=== PATIENT | female | born 1990 | race Caucasian/White ===

== ENCOUNTER 2018-05-08 14:11 | Emergency (ER) | payer OTHER ==
[~2018-05-08] VITALS: Ht 152.4 cm; Wt 46.8 kg
[2018-05-08] MEDS ORDERED: AZEL0.1S NARES (15:46)
[2018-05-08 15:56] VITALS: BP 108/63
== END 2018-05-08 16:14 | disposition home or self-care (01) ==
LOC: M ED 14:11
DX: H92.01 Otalgia, right ear (principal); H93.13 Tinnitus, bilateral; R51 Headache; R47.89 Other speech disturbances; Z87.828 Personal history of other (healed) physical injury and trauma

== ENCOUNTER → 2018-06-24 | Outpatient (CLI) | payer OTHER ==
[~2018-06-24] MED LIST: AZEL0.1S NARES
--- NOTE | 2018-06-24 14:42 | REP ---
MR BRAIN WITHOUT CONTRAST: HISTORY: Traumatic brain injury. Several punctate areas of increased signal intensity on T2 weighted images are present in the subcortical white matter of the frontal lobes. There is no intraparenchymal hemorrhage, infarct, mass or midline shift. The ventricular system is normal in appearance. There is no extracerebral collection. The sinuses are clear. IMPRESSION:There are several punctate areas of increased signal intensity in the subcortical white matter of the frontal lobes. This is a nonspecific finding. Electronically Signed by Serafin Hernandez MD 06/24/2018 02:44 P
== END ==
LOC: M RAD 13:02
PROVIDERS: ATTEND Physician Assistant
DX: S06.9X0A Unspecified intracranial injury without loss of consciousness, initial encounter (principal); X58.XXXA Exposure to other specified factors, initial encounter; Y92.9 Unspecified place or not applicable; Y93.9 Activity, unspecified; Y99.9 Unspecified external cause status

== ENCOUNTER → 2018-10-15 | Outpatient (CLI) | payer OTHER ==
--- NOTE | 2018-10-15 19:25 | REP ---
Clinical: Lower back pain. Technique: AP, lateral, bilateral oblique and coned-down views of the lumbosacral spine. Findings: Alignment is maintained. Vertebral bodies are intact. Disc spaces are normal. Impression: Normal lumbosacral spine radiographs. The Electronically Signed by Tomas Mahoney MD 10/15/2018 07:17 P
== END ==
LOC: M WUC 18:03
PROVIDERS: ATTEND Physician Assistant
DX: M54.5 Low back pain (principal)

== ENCOUNTER 2019-04-14 19:36 | Emergency (ER) | payer OTHER ==
[~2019-04-14] VITALS: Ht 152.4 cm; Wt 44.5 kg
[2019-04-14] MEDS ORDERED: TIZA4TAB4 PO (19:54)
[2019-04-14] MEDS ORDERED: XULA1DIS TD (19:54)
[2019-04-14] MEDS ORDERED: NAPR-855 PO (19:54)
[2019-04-14] MEDS ORDERED: NORT10CA2 PO (19:54)
[2019-04-14] MEDS ORDERED: LIDO1CRE2 TOP (19:56)
[2019-04-14] MEDS ORDERED: CAPS0.022 TOP (19:56)
[2019-04-14] MEDS ORDERED: DICL1GEL3 TOP (20:00)
[2019-04-14 20:27] LABS: BASO # 0.1 10^3/uL (0.0-0.2); BASO % 0.6 % (0.0-1.0); EOS # 0.2 10^3/uL (0.0-0.5); EOS % 2.5 % (0.0-3.0); HEMATOCRIT 40.2 % (36.0-47.0); HEMOGLOBIN 13.6 g/dl (12.0-15.5); LYMPH # 2.3 10^3/uL (1.5-5.0); LYMPH % 26.2 % (24.0-44.0); MEAN CORPUSCULAR HEMOGLOBIN 29.7 pg (27.0-33.0); MEAN CORPUSCULAR HGB CONC 33.8 g/dl (32.0-36.5); MEAN CORPUSCULAR VOLUME 87.8 fl (80.0-96.0); MONO # 0.8 10^3/uL (0.0-0.8); MONO % 9.6 % (0.0-5.0); NEUTROPHILS # 5.4 10^3/uL (1.5-8.5); NEUTROPHILS % 60.8 % (36.0-66.0); PLATELET COUNT, AUTOMATED 247 10^3/uL (150-450); RED BLOOD COUNT 4.58 10^6/uL (4.00-5.40); WHITE BLOOD COUNT 8.8 10^3/uL (4.0-10.0)
[2019-04-14 21:14] LABS: BLOOD UREA NITROGEN 11 MG/DL (7-18); CALCIUM LEVEL 9.3 MG/DL (8.5-10.1); CARBON DIOXIDE LEVEL 25 MEQ/L (21-32); CHLORIDE LEVEL 110 MEQ/L (98-107); CK-MB VALUE MASS < 1.0 NG/ML (<3.6); CPK CREATINE PHOSPHOKINASE 116 U/L (26-192); CREATININE FOR GFR 0.84 MG/DL (0.55-1.30); ETHYL ALCOHOL (ETHANOL) < 0.003 % (0.000-0.010); GLOMERULAR FILTRATION RATE > 60.0 (>60); GLUCOSE, FASTING 109 MG/DL (70-100); MAGNESIUM LEVEL 2.5 MG/DL (1.8-2.4); MB/CK RELATIVE INDEX 0.86 (< OR =4); POTASSIUM SERUM 3.7 MEQ/L (3.5-5.1); SODIUM LEVEL 143 MEQ/L (136-145); TROPONIN I < 0.02 NG/ML (< 0.10)
[2019-04-14 21:35] LABS: AMPHETAMINES LEVEL URINE NEGATIVE (NEGATIVE); BARBITURATES URINE NEGATIVE (NEGATIVE); BENZODIAZEPINES URINE NEGATIVE (NEGATIVE); CANNABINOIDS URINE NEGATIVE (NEGATIVE); COCAINE METABOLITE URINE NEGATIVE (NEGATIVE); METHADONE URINE NEGATIVE (NEGATIVE); OPIATES URINE NEGATIVE (NEGATIVE); PHENCYCLIDINE URINE NEGATIVE (NEGATIVE)
[2019-04-14 21:45] VITALS: BP 107/71
--- NOTE | 2019-04-15 08:01 | REP ---
Clinical: Chest pain . Comparison: None . Findings: The mediastinum and cardiac silhouette are stable and within normal limits for portable technique. The lung martinez are clear without acute consolidation, effusion, or pneumothorax. Skeletal structures are intact. Impression: No acute cardiopulmonary process appreciated. Electronically Signed by Tomas Mahoney MD 04/15/2019 07:53 A
--- NOTE | 2019-04-15 15:37 | ECGEPIP ---
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
== END 2019-04-14 22:03 | disposition home or self-care (01) ==
LOC: EDBD 19:36 → M ED 19:36
DX: I47.1 Supraventricular tachycardia (principal); Z88.0 Allergy status to penicillin; Z88.1 Allergy status to other antibiotic agents; Z88.8 Allergy status to other drugs, medicaments and biological substances; Z79.899 Other long term (current) drug therapy
CPT/HCPCS: 36415; 71045; 80048; 80307; 82550; 82553; 83735; 84443; 84484; 85025; 93005; 93041; 99285; G0480

== ENCOUNTER → 2019-05-14 | Outpatient (CLI) | payer OTHER ==
[~2019-05-14] MED LIST changes: +CAPS0.022 TOP; +DICL1GEL3 TOP; +LIDO1CRE2 TOP; +NAPR-855 PO; +NORT10CA2 PO; +TIZA4TAB4 PO; +XULA1DIS TD
[2019-05-14 14:44] LABS: HEMOGLOBIN A1c 4.5 %
[2019-05-14 14:56] LABS: FREE T4 0.98 NG/DL (0.76-1.46); THYROID STIMULATING HORMONE 0.702 uIU/ML (0.358-3.740)
[2019-05-14 14:58] LABS: CORTISOL AM 17.5 UG/DL (4.3-22.4); PROLACTIN 8.9 NG/ML; TOTAL 25(OH) VITAMIN D 13.3 NG/ML (30.0-100.0)
== END ==
LOC: M LAB 13:15
PROVIDERS: ATTEND Clinical Nurse Specialist Family Health
DX: R53.83 Other fatigue (principal); S06.0X0A Concussion without loss of consciousness, initial encounter; X58.XXXA Exposure to other specified factors, initial encounter; Y92.89 Other specified places as the place of occurrence of the external cause; Y93.89 Activity, other specified; Y99.8 Other external cause status

== ENCOUNTER 2019-08-10 08:50 | Outpatient (RCR) | payer OTHER | END 2019-08-11 | LOC: M OT 08:50 | PROVIDERS: ATTEND Physician Assistant Medical | DX: M79.644 Pain in right finger(s) (principal) ==

== ENCOUNTER 2019-08-27 09:00 | Outpatient (RCR) | payer OTHER | END 2019-09-10 | LOC: M OT 09:00 | PROVIDERS: ATTEND Physician Assistant Medical | DX: S62.622 Displaced fracture of middle phalanx of right middle finger (principal); Y92.89 Other specified places as the place of occurrence of the external cause ==